=== PATIENT | male | born 1995 | race Caucasian/White ===

== ENCOUNTER 2023-04-05 17:07 | Emergency (ER) | payer SELFPAY ==
[2023-04-05] MEDS ORDERED: Diphtheria,Pertussis(Acell),Tetanus Vaccine 0.5 ML Syringe IM ONE (17:45)
[2023-04-05] MEDS ORDERED: Lidocaine 1% 10 ML MDV INJECT ONE (17:45)
== END 2023-04-05 18:20 | disposition home or self-care (01) ==
LOC: JD.ED 17:07
DX: S61.211A Laceration without foreign body of left index finger without damage to nail, initial encounter (principal); F17.210 Nicotine dependence, cigarettes, uncomplicated; W45.8XXA Other foreign body or object entering through skin, initial encounter
CPT/HCPCS: 12001; 90471; 90715; 99282; 99282-25; J3490